=== PATIENT | female | born 1965 | race Caucasian/White ===

== ENCOUNTER 2020-01-14 07:19 | Day surgery (SDC) | payer OTHER ==
[2020-01-07 11:51] LABS: BASOPHILS % (AUTO) 0.6 % (0.0-5.0); EOSINOPHILS % (AUTO) 1.2 % (0.0-8.0); HEMATOCRIT 44.9 % (36-48); LYMPHOCYTES % (AUTO) 36.1 % (21.0-51.0); MEAN CORPUSCULAR HEMOGLOBIN 30.9 pg (27.0-33.0); MEAN CORPUSCULAR HGB CONC 32.7 g/dL (32.0-36.0); MEAN CORPUSCULAR VOLUME 94.3 fL (79-99); MONOCYTES % (AUTO) 6.6 % (3.0-13.0); NEUTROPHILS % (AUTO) 55.5 % (40.0-77.0); PLATELET COUNT (AUTO) 267 K/uL (130-400); RED BLOOD CELL COUNT(AUTO) 4.76 MIL/uL (4.00-5.50); RED CELL DISTRIBUTION WIDTH 12.2 % (11.0-15.5); WHITE BLOOD COUNT (AUTO) 3.3 K/uL (4.8-10.8)
[~2020-01-14] VITALS: Ht 165.1 cm; Wt 60.8 kg
[2020-01-14] VITALS (17 sets, daily range): BP systolic 106–130; BP diastolic 57–74
[~2020-01-14 07:19] MED LIST: BIOT25008 PO; VITAMIN D PO; VITAMIN E PO
[2020-01-14] MEDS ORDERED: CALDOLOR 800MG+NS 250ML 250 ML IV ONE (08:00)
[2020-01-14] MEDS ORDERED: CALDOLOR 800MG+NS 250ML 250 ML IV SCH (08:15)
[2020-01-14] MEDS ORDERED: LACTATED RINGERS 1000ML 1,000 ML IV SCH (08:15)
[2020-01-14] MEDS ORDERED: CEFAZOLIN SODIUM 1 GM VIAL IVP SCH (08:15)
[2020-01-14] MEDS ORDERED: GLYCOPYRROLATE 1 MG/5 ML SYRINGE ONE (08:32)
[2020-01-14] MEDS ORDERED: PROPOFOL 10 MG/ML 20ML VIAL IV ONE (08:32)
[2020-01-14] MEDS ORDERED: DEXAMETHASONE SOD PHOSPHATE 10MG/ML 1ML VIAL ONE ×2 (08:32→08:36)
[2020-01-14] MEDS ORDERED: NEOSTIGMINE 5MG/5ML SYR IV ONE (08:32)
[2020-01-14] MEDS ORDERED: LIDOCAINE PF 2% 5ML ABBOJECT ONE (08:32)
[2020-01-14] MEDS ORDERED: MIDAZOLAM HCL 1 MG/ML 2ML VIAL ONE (08:32)
[2020-01-14] MEDS ORDERED: ONDANSETRON HCL 4 MG/2 ML VIAL ONE (08:33)
[2020-01-14] MEDS ORDERED: ROCURONIUM 10MG/1ML SYR 10 MG/ML ML ONE (08:33)
[2020-01-14] MEDS ORDERED: FENTANYL CITRATE PF 50 MCG/1 ML 2ML VIAL ONE (08:33)
[2020-01-14] MEDS ORDERED: FENTANYL CITRATE PF 50 MCG/1 ML 5ML AMP IV ONE (09:27)
--- NOTE | 2020-01-14 10:55 | NUR ---
DAY PT ARRIVAL PT ARRIVED FROM PACU WITH NURSE. PT APPEARS IN NO APPARENT DISTRESS. DENIES PAIN OR DISCOMFORT, SCANT AMOUNT OF BLEEDING NOTED TO DAINELLA PAD. ORIENTED TO ROOM AND A CALL LIGHT PLACED IN REACH
--- NOTE | 2020-01-14 11:25 | NUR ---
DAY PT DC PT REMAINS IN NO APPARENT DISTRESS, ASSISTED TO BATHROOM, TOLERATED WALKING WITH NO DISCOMFORT. PT TAKEN TO PRIVATE VEHICLE VIA WHEELCHAIR.
== END 2020-01-14 11:25 | disposition home or self-care (01) ==
LOC: DAH 07:19
PROVIDERS: ATTEND Obstetrics & Gynecology
DX: N92.0 Excessive and frequent menstruation with regular cycle (principal); D25.0 Submucous leiomyoma of uterus; Z20.828 Contact with and (suspected) exposure to other viral communicable diseases
CPT/HCPCS: 36415 ×2; 58563; 85025; 86850 ×2; 86900 ×2; 86901 ×2; A4221; A4222; A4223; A4351; A4663; A6260; C9803; J0690; J1100 ×2; J1741; J2001; J2250; J2405; J2704; J2710; J3010 ×2; J3490; J7120; U0003

== ENCOUNTER → 2024-03-31 | Outpatient (CLI) | payer OTHER ==
--- NOTE | 2024-04-01 08:29 | HMCIMG ---
SCREENING MAMMOGRAM REASON: Annual Exam COMPARISON: 11/26/2019 TECHNIQUE: CC and MLO views of the bilateral breasts were performed.CAD was performed as well. FINDINGS: Parenchymal density: The breasts are heterogeneously dense, which may obscure small masses. There is a 9 mm focus of decreased density centrally in the right breast seen only on the cc view, 3 cm posterior to the nipple. This has macrolobulated posterior margin and poorly defined anterior margin. Focal spot views and ultrasound are recommended for further evaluation. Remaining breast parenchyma appears unremarkable. There are no pathologic appearing calcifications. There is no evidence of architectural distortion or skin thickening. IMPRESSION: 9 mm nodular density centrally in the right breast 3 cm posterior to the ventricle seen only on the cc view and not visible on prior exams. 2. Focal spot views and ultrasound recommended for further evaluation. The patient was entered into a reminder system with a target due date for their next mammogram. BI-RADS CATEGORY 0: INCOMPLETE. NEED ADDITIONAL IMAGING EVALUATION Recommend monthly self breast exam as well as annual clinical examination. A negative x-ray should not delay biopsy if a dominant or clinically suspicious mass is present, since 8-10% of cancers are not identified by mammography. Dense breasts particularly, may obscure an underlying neoplasm. Some of these may be detected clinically and therefore, clinical examination is an essential part of breast evaluation.
== END | disposition home or self-care (01) ==
LOC: RAH 13:36
PROVIDERS: ATTEND Family Medicine
DX: Z12.31 Encounter for screening mammogram for malignant neoplasm of breast (principal); R92.333 Mammographic heterogeneous density, bilateral breasts
CPT/HCPCS: 77067

== ENCOUNTER → 2024-05-10 | Outpatient (CLI) | payer OTHER ==
--- NOTE | 2024-05-11 10:09 | HMCIMG ---
PROCEDURE: MAMMO DX UNILATERAL RIGHT, US BREAST BILATERAL HISTORY: Abnormal mammogram COMPARISON: 03/31/2024 TECHNIQUE: Right breast digital diagnostic mammogram with CAD was performed. Additional cone compression views were obtained of the right breast. Bilateral breast ultrasound study was obtained. FINDINGS: The breasts are heterogeneously dense, which may obscure small masses. There is no evidence of a dominant mass, or suspicious microcalcification. There is no evidence of nipple retraction or skin thickening. Bilateral breast ultrasound study shows no evidence of cystic or hypoechoic mass. Dense fibroglandular tissue is seen. There is right axillary lymph node measuring 17 x 7 x 15 IMPRESSION: 1. Stable mammogram. No cystic or hypoechoic mass is present ultrasound study BI-RADS: CATEGORY 2: BENIGN FINDINGS Recommend monthly self breast exam as well as annual clinical examination. A negative x-ray should not delay biopsy if a dominant or clinically suspicious mass is present, since 8-10% of cancers are not identified by mammography. Dense breasts particularly, may obscure an underlying neoplasm. Some of these may be detected clinically and therefore, clinical examination is an essential part of breast evaluation.
== END | disposition home or self-care (01) ==
LOC: RAH 13:59
PROVIDERS: ATTEND Family Medicine
DX: N63.10 Unspecified lump in the right breast, unspecified quadrant (principal); R92.331 Mammographic heterogeneous density, right breast; R92.8 Other abnormal and inconclusive findings on diagnostic imaging of breast
CPT/HCPCS: 77065